=== PATIENT | female | born 1990 ===

== ENCOUNTER → 2017-01-31 | Outpatient (CLI) | payer OTHER ==
--- NOTE | 2017-01-31 15:51 | DIAGNOSTIC IMAGING REPORT ---
MRI OF THE LUMBAR SPINE WITHOUT IV CONTRAST CLINICAL HISTORY: Low back pain radiating into the legs. COMPARISON STUDY: No priors. TECHNIQUE: MRI of the lumbar spine is performed utilizing various T1 and T2-weighted sequences in the axial and sagittal planes. IV contrast was not administered for this examination. FINDINGS: Lumbar spine: Vertebral body height and alignment are maintained throughout the lumbar spine. Normal marrow signal intensity is preserved throughout the visualized bony structures. The transverse and spinous processes appear intact. There is no evidence of spondylolysis. No destructive bony lesion is seen. Intervertebral discs: Degenerative disc desiccation is seen at L4-L5 and L5-S1. The remaining discs are normal in height and signal intensity. Spinal cord: The visualized spinal cord is normal in morphology and signal intensity. The conus medullaris terminates at the L1-L2 interspace. The nerve roots of the cauda equina are normal in morphology. L1-L2: Unremarkable. L2-L3: Unremarkable. L3-L4: Unremarkable. L4-L5: There is a small posterior disc herniation. This causes mild acquired compromise of the central canal with a minimum AP diameter of 6.5 mm. This causes bilateral subarticular stenosis, left greater than right. This likely impinges on the transiting bilateral L5 nerve roots. The neural foramina are clear. L5-S1: There is a small central posterior disc extrusion with annular fissure. There is no significant acquired compromise of the central canal at this level. The central canal is mildly narrowed, likely on a congenital basis. The minimum AP diameter measures 7 mm. The disc extrusion may abut the transiting S1 nerve roots. The neural foramina are widely patent. Mild facet arthropathy is of no consequence. Soft tissues: The paraspinous soft tissues are normal in appearance. The partially imaged retroperitoneal structures are grossly unremarkable but incompletely evaluated. Sacrum: The visualized sacrum is normal in morphology and signal intensity. IMPRESSION: 1. There is a small posterior disc herniation at L4-L5. This causes mild acquired compromise of the central canal and likely impinges on the transiting bilateral L5 nerve roots. 2. There is a small posterior central disc extrusion at L5-S1. This likely abuts the transiting bilateral S1 nerve roots. 3. No significant degenerative change is seen at the remaining lumbar levels. 4. No bony abnormality is identified. Dictated: 01/31/2017 3:16 PM Transcribed: 01/31/2017 3:51 PM [email or web address] Electronically signed by: Roldan Stover M.D. 01/31/2017 3:59 PM Dictated Date/Time: 01/31/2017 3:16 PM
== END | disposition home or self-care (01) ==
LOC: C.MRIBC 14:26
PROVIDERS: ATTEND Family Medicine
DX: M54.16 Radiculopathy, lumbar region (principal); M51.26 Other intervertebral disc displacement, lumbar region; M51.27 Other intervertebral disc displacement, lumbosacral region